=== PATIENT | male | born 1950 | race Caucasian/White ===

== ENCOUNTER 2017-03-03 09:47 | Inpatient (IN) | payer BC, OTHER ==
[~2017-03-03] VITALS: Ht 188 cm; Wt 97.2 kg
[~2017-03-03 09:47] MED LIST: CYANOCOBAL1000 MCG/2 IM; LOFIBRA54 MG PO; MULTIVITAMIN
[2017-03-03 11:07] LABS: BASOPHIL COUNT 0.1 K/uL (0-0.1); EOSINOPHIL (%) 0.4 % (0-5); HEMATOCRIT 46.5 % (38.0-50.0); IMMATURE GRANULOCYTE (%) 0.4 % (0.0-0.7); INSTRUMENT ABS NEUTROPHIL CT 8.5 K/uL; LYMPHOCYTE COUNT 1.2 K/uL (1.0-2.8); MCH 29.5 PG (29.0-34.0); MCHC 33.1 G/DL (30.0-36.0); MCV 89.1 FL (86-99); MEAN PLAT.VOLUME 11.7 uM^3 (9.0-12.4); MONOCYTE (%) 5.8 % (3-12); MONOCYTE COUNT 0.6 K/uL (0-0.8); NEUTROPHIL (%) 81.4 % (45-76); NEUTROPHIL COUNT 8.5 K/uL (1.8-6.4); PLATELET COUNT 150 K/uL (156-360); RBC DIS.WIDTH-CV 13.1 % (11.8-14.6); RBC DIS.WIDTH-SD 42.5 % (39-53); RED BLOOD COUNT 5.22 M/uL (4.00-5.50); WHITE BLOOD COUNT 10.4 K/uL (4.1-10.2)
[2017-03-03 12:12] LABS: CHLORIDE 105 mEq/L (99-109); SODIUM 137 mEq/L (136-147)
[2017-03-03 12:14] LABS: GLUCOSE 103 mg/dL (70-99)
[2017-03-03 12:16] LABS: ANION GAP 10 MEQ/L (2-14); TOTAL BILIRUBIN 0.7 mg/dL (0.0-1.0)
[2017-03-03 12:18] LABS: ALKALINE PHOSPHATASE 58 IU/L (3-129); GFR ESTIMATE (CALCULATED) > 59 mL/min/
[2017-03-03 12:19] LABS: UREA NITROGEN (BUN) 17 mg/dL (9-23)
[2017-03-03 12:21] LABS: LIPASE 32 U/L (1.0-51.0)
[2017-03-03] MEDS ORDERED: FENOGLIDE120 MG PO (13:28)
[2017-03-03] MEDS ORDERED: LAMISIL250 MG PO (13:29)
[2017-03-03] MEDS ORDERED: NAPROSYN250 MG PO (13:31)
[2017-03-03 18:09] VITALS: BP 136/86
[2017-03-03 19:40] VITALS: BP 130/72
[2017-03-03 23:24] VITALS: BP 136/77
[2017-03-04] VITALS (7 sets, daily range): BP systolic 106–138; BP diastolic 71–83
[2017-03-04 01:54] LABS: CHLORIDE 106 mEq/L (99-109); POTASSIUM 4.2 mEq/L (3.7-5.4); SODIUM 137 mEq/L (136-147)
[2017-03-04 01:55] LABS: MAGNESIUM 1.9 mg/dL (1.3-2.7)
[2017-03-04 01:56] LABS: GLUCOSE 140 mg/dL (70-99)
[2017-03-04 01:57] LABS: ANION GAP 11 MEQ/L (2-14)
[2017-03-04 02:00] LABS: GFR ESTIMATE (CALCULATED) > 59 mL/min/
[2017-03-04 02:01] LABS: UREA NITROGEN (BUN) 17 mg/dL (9-23)
[2017-03-04 02:02] LABS: MCH 29.5 PG (29.0-34.0); MCHC 33.4 G/DL (30.0-36.0); MCV 88.2 FL (86-99); MEAN PLAT.VOLUME 11.5 uM^3 (9.0-12.4); RBC DIS.WIDTH-CV 12.9 % (11.8-14.6); RBC DIS.WIDTH-SD 41.8 % (39-53); RED BLOOD COUNT 5.33 M/uL (4.00-5.50); WHITE BLOOD COUNT 6.7 K/uL (4.1-10.2)
[2017-03-04 02:19] LABS: PLATELET COUNT 252 K/uL (156-360)
[2017-03-04 09:09] LABS: ADD MIUA? NO; BILIRUBIN NEGATIVE; BLOOD NEGATIVE; COLOR YELLOW ((YELLOW)); GLUCOSE (STRIP) NEGATIVE; KETONES NEGATIVE; LEUKOCYTES NEGATIVE; NITRITE NEGATIVE; PROTEIN (STRIP) NEGATIVE; SPECIFIC GRAVITY 1.029 (1.000-1.030); UROBILINOGEN 0.2 MG/DL (0.2-1.0)
[2017-03-04 11:25] LABS: POINT-OF-CARE METER ID UU14314084
[2017-03-04 19:41] LABS: HEMATOCRIT 46.2 % (38.0-50.0); MCH 29.4 PG (29.0-34.0); MCHC 32.9 G/DL (30.0-36.0); MCV 89.4 FL (86-99); MEAN PLAT.VOLUME 10.9 uM^3 (9.0-12.4); PLATELET COUNT 192 K/uL (156-360); RBC DIS.WIDTH-CV 12.9 % (11.8-14.6); RBC DIS.WIDTH-SD 42.4 % (39-53); RED BLOOD COUNT 5.17 M/uL (4.00-5.50); WHITE BLOOD COUNT 2.7 K/uL (4.1-10.2)
[2017-03-04 20:03] LABS: ANION GAP 7 MEQ/L (2-14); CHLORIDE 106 MEQ/L (99-109); GFR ESTIMATE (CALCULATED) 50 mL/min/; GLUCOSE 129 mg/dL (70-99); MAGNESIUM 1.6 mg/dl (1.3-2.7); POTASSIUM 4.3 MEQ/L (3.7-5.4); SAMPLE HEMOLYSIS CHECK 0; SAMPLE ICTERIC CHECK 0; SAMPLE LIPEMIA CHECK 0; SODIUM 137 MEQ/L (136-147); UREA NITROGEN (BUN) 23 mg/dL (9-23)
[2017-03-04 22:47] LABS: METH RESISTANT S AUREUS PCR NEGATIVE (NEGATIVE)
[2017-03-04 22:48] LABS: PROBE CHECK PASS; SPECIMEN PROCESSING CONTROL PASS
[2017-03-05] VITALS (18 sets, daily range): BP systolic 114–146; BP diastolic 68–82
[2017-03-05 06:19] LABS: ALKALINE PHOSPHATASE 40 IU/L (3-129); ANION GAP 10 MEQ/L (2-14); CHLORIDE 106 MEQ/L (99-109); GFR ESTIMATE (CALCULATED) > 59 mL/min/; GLUCOSE 123 mg/dL (70-99); MAGNESIUM 1.4 mg/dl (1.3-2.7); POTASSIUM 4.3 MEQ/L (3.7-5.4); PREALBUMIN 14.4 mg/dL (10-40); SAMPLE HEMOLYSIS CHECK 0; SAMPLE ICTERIC CHECK 0; SAMPLE LIPEMIA CHECK 0; SODIUM 140 MEQ/L (136-147); TOTAL BILIRUBIN 1.6 MG/DL (0.0-1.0); TRIGLYCERIDES 82 MG/DL (Normal: <150); UREA NITROGEN (BUN) 27 mg/dL (9-23)
[2017-03-05 07:31] LABS: ABS NEUTROPHIL COUNT 2.7; EOSINOPHIL ABS CT 0; HEMATOCRIT 44.8 % (38.0-50.0); INSTRUMENT ABS NEUTROPHIL CT 2.9 K/uL; MCH 29.9 PG (29.0-34.0); MCHC 33.7 G/DL (30.0-36.0); MCV 88.7 FL (86-99); PLAT.SUFFICIENCY ADEQUATE; PLATELET COUNT 184 K/uL (156-360); RBC DIS.WIDTH-CV 13.2 % (11.8-14.6); RBC DIS.WIDTH-SD 42.9 % (39-53); RED BLOOD COUNT 5.05 M/uL (4.00-5.50); WHITE BLOOD COUNT 3.9 K/uL (4.1-10.2)
[2017-03-06] VITALS (20 sets, daily range): BP systolic 120–166; BP diastolic 57–141
[2017-03-06 06:02] LABS: ANION GAP 8 MEQ/L (2-14); CHLORIDE 103 MEQ/L (99-109); GFR ESTIMATE (CALCULATED) > 59 mL/min/; GLUCOSE 118 mg/dL (70-99); MAGNESIUM 2.2 mg/dl (1.3-2.7); POTASSIUM 3.9 MEQ/L (3.7-5.4); SAMPLE HEMOLYSIS CHECK 0; SAMPLE ICTERIC CHECK 0; SAMPLE LIPEMIA CHECK 0; SODIUM 136 MEQ/L (136-147); UREA NITROGEN (BUN) 25 mg/dL (9-23)
[2017-03-07] VITALS (7 sets, daily range): BP systolic 130–173; BP diastolic 76–95
[2017-03-07 05:04] LABS: MCH 29.8 PG (29.0-34.0); MCV 87.5 FL (86-99); MEAN PLAT.VOLUME 11.3 uM^3 (9.0-12.4); PLATELET COUNT 197 K/uL (156-360); RBC DIS.WIDTH-CV 12.8 % (11.8-14.6); RBC DIS.WIDTH-SD 41.1 % (39-53); WHITE BLOOD COUNT 10.9 K/uL (4.1-10.2)
[2017-03-07 05:18] LABS: CHLORIDE 107 mEq/L (99-109); POTASSIUM 3.6 mEq/L (3.7-5.4); SODIUM 135 mEq/L (136-147)
[2017-03-07 05:19] LABS: MAGNESIUM 1.8 mg/dL (1.3-2.7)
[2017-03-07 05:20] LABS: GLUCOSE 131 mg/dL (70-99)
[2017-03-07 05:21] LABS: ANION GAP 9 MEQ/L (2-14)
[2017-03-07 05:24] LABS: GFR ESTIMATE (CALCULATED) > 59 mL/min/
[2017-03-07 05:25] LABS: UREA NITROGEN (BUN) 21 mg/dL (9-23)
[2017-03-07 06:49] LABS: BASOPHIL COUNT 0.1 K/uL (0-0.1); EOSINOPHIL (%) 0.5 % (0-5); EOSINOPHIL COUNT 0.1 K/uL (0-0.3); HEMATOLOGY COMMENT 1 SMEAR COMPATIBLE; IMMATURE GRANULOCYTE (%) 2.6 % (0.0-0.7); IMMATURE GRANULOCYTE COUNT 0.3 K/uL; INSTRUMENT ABS NEUTROPHIL CT 8.5 K/uL; LYMPHOCYTE COUNT 0.9 K/uL (1.0-2.8); MONOCYTE (%) 10.5 % (3-12); MONOCYTE COUNT 1.2 K/uL (0-0.8); NEUTROPHIL (%) 77.9 % (45-76); NEUTROPHIL COUNT 8.5 K/uL (1.8-6.4)
[2017-03-08 03:30] VITALS: BP 155/84
[2017-03-08 05:24] LABS: HEMATOCRIT 34.4 % (38.0-50.0); MCH 29.2 PG (29.0-34.0); MCHC 33.7 G/DL (30.0-36.0); MCV 86.6 FL (86-99); MEAN PLAT.VOLUME 11.3 uM^3 (9.0-12.4); PLATELET COUNT 251 K/uL (156-360); RBC DIS.WIDTH-CV 12.9 % (11.8-14.6); RBC DIS.WIDTH-SD 41.1 % (39-53); RED BLOOD COUNT 3.97 M/uL (4.00-5.50)
[2017-03-08 05:55] LABS: ANION GAP 11 MEQ/L (2-14); CHLORIDE 109 MEQ/L (99-109); GFR ESTIMATE (CALCULATED) > 59 mL/min/; GLUCOSE 123 mg/dL (70-99); MAGNESIUM 2.3 mg/dl (1.3-2.7); POTASSIUM 3.7 MEQ/L (3.7-5.4); SAMPLE HEMOLYSIS CHECK 0; SAMPLE ICTERIC CHECK 0; SAMPLE LIPEMIA CHECK 0; SODIUM 142 MEQ/L (136-147); UREA NITROGEN (BUN) 20 mg/dL (9-23)
[2017-03-08 06:21] LABS: ABS NEUTROPHIL COUNT 9.9; EOSINOPHIL ABS CT 0.2; EOSINOPHILS 1.8 % (0-5.0); INSTRUMENT ABS NEUTROPHIL CT 8.4 K/uL; LYMPHOCYTES 10.7 % (15.0-45.0); MACROCYTES 1+; METAMYELOCYTES 0.9 %; PLAT.SUFFICIENCY ADEQUATE; TARGET CELLS 1+
[2017-03-08 06:27] LABS: BAND NEUTROPHILS 1.8 % (0-8.0); SEG.NEUTROPHILS 74.1 % (46.0-76.0)
[2017-03-08 09:35] VITALS: BP 157/85
[2017-03-08 13:22] VITALS: BP 154/81
[2017-03-08 17:20] VITALS: BP 163/84
[2017-03-08 20:43] VITALS: BP 149/84
[2017-03-08 23:59] VITALS: BP 150/86
[2017-03-09 01:00] VITALS: BP 142/74
[2017-03-09 04:23] VITALS: BP 164/87
[2017-03-09 05:20] LABS: HEMATOCRIT 35.1 % (38.0-50.0); MCH 29.4 PG (29.0-34.0); MCHC 33.6 G/DL (30.0-36.0); MCV 87.3 FL (86-99); MEAN PLAT.VOLUME 10.8 uM^3 (9.0-12.4); PLATELET COUNT 284 K/uL (156-360); RBC DIS.WIDTH-CV 13.2 % (11.8-14.6); RBC DIS.WIDTH-SD 41.7 % (39-53); RED BLOOD COUNT 4.02 M/uL (4.00-5.50); WHITE BLOOD COUNT 16.1 K/uL (4.1-10.2)
[2017-03-09 06:06] LABS: ANION GAP 10 MEQ/L (2-14); CHLORIDE 112 MEQ/L (99-109); GFR ESTIMATE (CALCULATED) > 59 mL/min/; GLUCOSE 123 mg/dL (70-99); MAGNESIUM 2.2 mg/dl (1.3-2.7); POTASSIUM 3.8 MEQ/L (3.7-5.4); PREALBUMIN 11.6 mg/dL (10-40); SAMPLE HEMOLYSIS CHECK 0; SAMPLE ICTERIC CHECK 0; SAMPLE LIPEMIA CHECK 0; SODIUM 143 MEQ/L (136-147); TRIGLYCERIDES 217 MG/DL (Normal: <150); UREA NITROGEN (BUN) 25 mg/dL (9-23)
[2017-03-09 06:08] LABS: ALKALINE PHOSPHATASE 134 IU/L (3-129); DIRECT BILIRUBIN 0.4 mg/dL (0.0-0.3); TOTAL BILIRUBIN 0.9 MG/DL (0.0-1.0)
[2017-03-09 06:33] LABS: ATYPICAL LYMPHOCYTE 2.6 %; BAND NEUTROPHILS 0.9 % (0-8.0); EOSINOPHIL ABS CT 0.3; EOSINOPHILS 1.8 % (0-5.0); INSTRUMENT ABS NEUTROPHIL CT 9.5 K/uL; LYMPHOCYTES 7.8 % (15.0-45.0); METAMYELOCYTES 3.5 %; MYELOCYTES 1.7 %; PLAT.SUFFICIENCY ADEQUATE; SEG.NEUTROPHILS 73.9 % (46.0-76.0)
[2017-03-09 09:35] VITALS: BP 130/70
[2017-03-09 12:36] VITALS: BP 157/79
[2017-03-09 16:13] LABS: ADD MIUA? YES; BILIRUBIN NEGATIVE; BLOOD NEGATIVE; COLOR AMBER ((YELLOW)); GLUCOSE (STRIP) 50; KETONES NEGATIVE; LEUKOCYTES NEGATIVE; NITRITE NEGATIVE; PROTEIN (STRIP) 30; SPECIFIC GRAVITY 1.032 (1.000-1.030)
[2017-03-09 16:19] LABS: BACTERIA RARE /HPF; EPITHELIAL CELLS NONE SEEN /HPF; MUCUS TRACE /LPF; RED BLOOD CELLS 0-5 /HPF (0-5); WHITE BLOOD CELLS 0-5 /HPF (0-5)
[2017-03-09 16:57] LABS: C DIFF TOXIN NEGATIVE (NEGATIVE)
[2017-03-09 17:01] LABS: PROBE CHECK PASS; SPECIMEN PROCESSING CONTROL PASS
[2017-03-09 18:40] VITALS: BP 137/86
[2017-03-10 01:00] VITALS: BP 142/74
[2017-03-10 03:00] VITALS: BP 140/74
[2017-03-10 05:57] LABS: ANION GAP 8 MEQ/L (2-14); CHLORIDE 108 MEQ/L (99-109); GFR ESTIMATE (CALCULATED) > 59 mL/min/; GLUCOSE 118 mg/dL (70-99); MAGNESIUM 2.1 mg/dl (1.3-2.7); SAMPLE HEMOLYSIS CHECK 0; SAMPLE ICTERIC CHECK 0; SAMPLE LIPEMIA CHECK 0; SODIUM 141 MEQ/L (136-147); UREA NITROGEN (BUN) 26 mg/dL (9-23)
[2017-03-10 07:49] VITALS: BP 137/85
[2017-03-10 08:42] LABS: HEMATOCRIT 38.7 % (38.0-50.0); MCH 28.9 PG (29.0-34.0); MCHC 33.3 G/DL (30.0-36.0); MCV 86.8 FL (86-99); MEAN PLAT.VOLUME 10.7 uM^3 (9.0-12.4); PLATELET COUNT 398 K/uL (156-360); RBC DIS.WIDTH-CV 13.3 % (11.8-14.6); RBC DIS.WIDTH-SD 42.5 % (39-53); RED BLOOD COUNT 4.46 M/uL (4.00-5.50); WHITE BLOOD COUNT 24.4 K/uL (4.1-10.2)
[2017-03-10 11:21] VITALS: BP 131/66
[2017-03-10 16:49] VITALS: BP 140/68
[2017-03-10 19:05] VITALS: BP 151/72
[2017-03-11 00:03] VITALS: BP 138/76
[2017-03-11 03:43] VITALS: BP 142/75
[2017-03-11 05:02] LABS: HEMATOCRIT 32.4 % (38.0-50.0); MCH 29.3 PG (29.0-34.0); MCHC 33.3 G/DL (30.0-36.0); MCV 87.8 FL (86-99); RBC DIS.WIDTH-CV 13.2 % (11.8-14.6); RBC DIS.WIDTH-SD 42.5 % (39-53); RED BLOOD COUNT 3.69 M/uL (4.00-5.50); WHITE BLOOD COUNT 21.9 K/uL (4.1-10.2)
[2017-03-11 05:30] LABS: ALKALINE PHOSPHATASE 108 IU/L (3-129); ANION GAP 9 MEQ/L (2-14); CHLORIDE 109 MEQ/L (99-109); DIRECT BILIRUBIN 0.9 mg/dL (0.0-0.3); GFR ESTIMATE (CALCULATED) > 59 mL/min/; GLUCOSE 129 mg/dL (70-99); MAGNESIUM 1.9 mg/dl (1.3-2.7); POTASSIUM 3.7 MEQ/L (3.7-5.4); SAMPLE HEMOLYSIS CHECK 0; SAMPLE ICTERIC CHECK 0; SAMPLE LIPEMIA CHECK 0; SODIUM 140 MEQ/L (136-147); TOTAL BILIRUBIN 1.8 MG/DL (0.0-1.0); TRIGLYCERIDES 146 MG/DL (Normal: <150); UREA NITROGEN (BUN) 24 mg/dL (9-23)
[2017-03-11 05:44] LABS: ABS NEUTROPHIL COUNT 19.6; ANISOCYTOSIS 1+; BAND NEUTROPHILS 4.7 % (0-8.0); EOSINOPHIL ABS CT 0.1; EOSINOPHILS 0.4 % (0-5.0); LYMPHOCYTES 5.6 % (15.0-45.0); MEAN PLAT.VOLUME 10.7 uM^3 (9.0-12.4); METAMYELOCYTES 0.9 %; MICROCYTOSIS 1+; MYELOCYTES 0.8 %; PLAT.SUFFICIENCY ADEQUATE; PLATELET COUNT 358 K/uL (156-360); POIKILOCYTOSIS 1+; POLYCHROMASIA 1+; SEG.NEUTROPHILS 84.6 % (46.0-76.0)
[2017-03-11 07:30] VITALS: BP 157/83
[2017-03-11 12:22] VITALS: BP 145/72
[2017-03-11 15:46] VITALS: BP 143/76
[2017-03-11 19:00] VITALS: BP 140/81
[2017-03-12 03:15] VITALS: BP 145/76
[2017-03-12 05:57] LABS: ANION GAP 9 MEQ/L (2-14); CHLORIDE 109 MEQ/L (99-109); GFR ESTIMATE (CALCULATED) > 59 mL/min/; GLUCOSE 111 mg/dL (70-99); MAGNESIUM 2.1 mg/dl (1.3-2.7); SAMPLE HEMOLYSIS CHECK 0; SAMPLE ICTERIC CHECK 0; SAMPLE LIPEMIA CHECK 0; SODIUM 139 MEQ/L (136-147); UREA NITROGEN (BUN) 22 mg/dL (9-23)
[2017-03-12 08:50] VITALS: BP 125/79
[2017-03-12 09:17] LABS: MCH 29.2 PG (29.0-34.0); MCHC 32.8 G/DL (30.0-36.0); MCV 89.1 FL (86-99); MEAN PLAT.VOLUME 11.9 uM^3 (9.0-12.4); PLATELET COUNT 421 K/uL (156-360); RBC DIS.WIDTH-CV 13.3 % (11.8-14.6); RBC DIS.WIDTH-SD 43.8 % (39-53); RED BLOOD COUNT 3.59 M/uL (4.00-5.50); WHITE BLOOD COUNT 16.7 K/uL (4.1-10.2)
[2017-03-12 10:13] LABS: ABS NEUTROPHIL COUNT 13.9; ANISOCYTOSIS 1+; EOSINOPHIL ABS CT 0; INSTRUMENT ABS NEUTROPHIL CT 12.4 K/uL; MICROCYTOSIS 1+; PLAT.SUFFICIENCY INCREASED
[2017-03-12 10:48] LABS: URINE UREA NITROGEN 28984 MG/24 HR
[2017-03-12 21:00] VITALS: BP 155/71
[2017-03-13 00:10] VITALS: BP 140/82
[2017-03-13 03:30] VITALS: BP 138/65
[2017-03-13 06:18] LABS: HEMATOCRIT 31.6 % (38.0-50.0); MCH 29.1 PG (29.0-34.0); MCHC 32.9 G/DL (30.0-36.0); MCV 88.3 FL (86-99); MEAN PLAT.VOLUME 10.9 uM^3 (9.0-12.4); PLATELET COUNT 491 K/uL (156-360); RBC DIS.WIDTH-CV 13.2 % (11.8-14.6); RED BLOOD COUNT 3.58 M/uL (4.00-5.50); WHITE BLOOD COUNT 15.8 K/uL (4.1-10.2)
[2017-03-13 06:46] LABS: ALKALINE PHOSPHATASE 167 IU/L (3-129); ANION GAP 9 MEQ/L (2-14); CHLORIDE 104 MEQ/L (99-109); DIRECT BILIRUBIN 0.8 mg/dL (0.0-0.3); GFR ESTIMATE (CALCULATED) > 59 mL/min/; GLUCOSE 101 mg/dL (70-99); MAGNESIUM 2.2 mg/dl (1.3-2.7); POTASSIUM 4.1 MEQ/L (3.7-5.4); SAMPLE HEMOLYSIS CHECK 0; SAMPLE ICTERIC CHECK 0; SAMPLE LIPEMIA CHECK 0; SODIUM 137 MEQ/L (136-147); TOTAL BILIRUBIN 1.5 MG/DL (0.0-1.0); TRIGLYCERIDES 134 MG/DL (Normal: <150); UREA NITROGEN (BUN) 21 mg/dL (9-23)
[2017-03-13 07:12] VITALS: BP 156/80
[2017-03-13 07:36] LABS: BAND NEUTROPHILS 3.5 % (0-8.0); EOSINOPHIL ABS CT 0.1; EOSINOPHILS 0.9 % (0-5.0); INSTRUMENT ABS NEUTROPHIL CT 11.8 K/uL; LYMPHOCYTES 10.6 % (15.0-45.0); NUCLEATED RBC'S 1.8; PLAT.SUFFICIENCY INCREASED; SEG.NEUTROPHILS 78.8 % (46.0-76.0)
[2017-03-13 11:40] VITALS: BP 140/79
[2017-03-13 13:39] VITALS: BP 140/79
== END 2017-03-13 14:00 | disposition designated cancer center or children's hospital, planned readmission (85) | DRG 330 ==
LOC: EME 09:47 → EDOF 15:36 → 2EAST 15:36 → 4EAST 15:36 → ENRESERV 16:03 → 2EAST 18:06 → ENRESERV 03-04 17:18 → 2EAST 03-04 18:31 → ENRESERV 03-04 19:45 → 4WEST 03-04 20:35 → ENRESERV 03-07 08:43 → 4EAST 03-07 10:11
PROVIDERS: Emergency Medicine; Physician Assistant; Physician Assistant Surgical; Surgery
DX: K56.51 Intestinal adhesions [bands], with partial obstruction (principal); L03.311 Cellulitis of abdominal wall; E44.0 Moderate protein-calorie malnutrition; G47.33 Obstructive sleep apnea (adult) (pediatric); F10.10 Alcohol abuse, uncomplicated; Z99.89 Dependence on other enabling machines and devices; E78.1 Pure hyperglyceridemia; Z85.038 Personal history of other malignant neoplasm of large intestine; D72.819 Decreased white blood cell count, unspecified; Y83.2 Surgical operation with anastomosis, bypass or graft as the cause of abnormal reaction of the patient, or of later complication, without mention of misadventure at the time of the procedure; Y92.239 Unspecified place in hospital as the place of occurrence of the external cause; Y73.3 Surgical instruments, materials and gastroenterology and urology devices (including sutures) associated with adverse incidents
CPT/HCPCS: 71010; 74000; 74020; 74177; 80048; 80048 91; 80053; 80076; 81003; 81050; 82248; 82948; 83605; 83690; 83735; 84100; 84134; 84478; 84540; 84630 90; 85025; 85027; 87040; 87493; 87641; 88307; 93005; 97530 GP; 99281; 99285; C9113; J0131; J0330; J0690; J1100; J1170; J1335; J1650; J1885; J2270; J2405; J2710; J2765; J3010; J3475; J7030; J7050; J7120; S0074